=== PATIENT | male | born 1950 | race Caucasian/White ===

== ENCOUNTER → 2016-09-25 | Outpatient (CLI) | payer MEDICARE | LOC: KOH-I 14:17 | DX: M54.16 Radiculopathy, lumbar region (principal) | CPT/HCPCS: 72110 ==

== ENCOUNTER → 2016-10-18 | Outpatient (CLI) | payer MEDICARE | LOC: EMI 17:22 | DX: M54.16 Radiculopathy, lumbar region (principal); M51.27 Other intervertebral disc displacement, lumbosacral region; I72.3 Aneurysm of iliac artery | CPT/HCPCS: 72148 ==

== ENCOUNTER → 2021-03-01 | Outpatient (CLI) | payer MEDICARE ==
[~2021-03-01] MED LIST: BAYER CHEWABLE81 MG PO; COREG 12.5MG12.5 MG PO; HABITROL 21 MG P1 EA TP; HYDROCHLOROTHIA25 MG PO; ISOSORBIDE MONO30 MG PO; NEURONTIN 300300 MG PO; OMNICEF 300 MG300 MG PO; PROVENTIL HFA6.7 GM HHN; SIMVASTATIN20 MG PO
== END ==
LOC: EXRD 14:43
DX: R59.1 Generalized enlarged lymph nodes (principal); E04.1 Nontoxic single thyroid nodule; K11.8 Other diseases of salivary glands
CPT/HCPCS: 76536

== ENCOUNTER → 2021-04-26 | Outpatient (CLI) | payer MEDICARE | END | disposition home or self-care (01) | LOC: US 04-06 10:00 | PROC: 0GBG3ZX Excision of Left Thyroid Gland Lobe, Percutaneous Approach, Diagnostic (ICD-10-PCS; principal; 2021-04-26) | PROC: 0CB Mouth and Throat, Excision (ICD-10-PCS; 2021-04-26) | PROC: 0CB Mouth and Throat, Excision (ICD-10-PCS; 2021-04-26) | DX: E04.1 Nontoxic single thyroid nodule (principal); K11.8 Other diseases of salivary glands ==

== ENCOUNTER → 2021-07-24 | Outpatient (CLI) | payer MEDICARE ==
[~2021-07-24] VITALS: Ht 177.8 cm; Wt 154.2 kg
== END ==
LOC: EROP 12:31
DX: Z23 Encounter for immunization (principal); U07.1 COVID-19; E11.22 Type 2 diabetes mellitus with diabetic chronic kidney disease; I12.9 Hypertensive chronic kidney disease with stage 1 through stage 4 chronic kidney disease, or unspecified chronic kidney disease; N18.9 Chronic kidney disease, unspecified
CPT/HCPCS: M0247; Q0247

== ENCOUNTER → 2021-11-27 | Outpatient (CLI) | payer MEDICARE | LOC: KOH-I 13:38 | DX: F17.210 Nicotine dependence, cigarettes, uncomplicated (principal) | CPT/HCPCS: 71271 ==